=== PATIENT | female | born 1995 ===

== ENCOUNTER 2017-09-10 16:20 | Emergency (ER) | payer OTHER ==
[2017-09-10 16:27] VITALS: BMI 25.2
[2017-09-10 16:33] VITALS: TEMP 99.1; O2SAT 99
[2017-09-10] MEDS ORDERED: Naproxen 550 mg Tab PO STA (16:55)
[2017-09-10] MEDS ORDERED: Naproxen 550 mg Tab PO ONE (17:07)
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
[2017-09-10 17:50] VITALS: BP 106/78; PULSE 72; RESP 20
--- NOTE | 2017-09-10 17:52 | RAD ---
PROCEDURE: Cervical Spine Radiographs. HISTORY: Pain. COMPARISON: None. FINDINGS: BONES: Alignment maintained. No fracture. Dens Intact. DISC SPACES: Normal. SOFT TISSUES: Normal. No prevertebral soft tissue swelling. OTHER FINDINGS: None. IMPRESSION: No evidence of acute displaced fracture or subluxation.
== END 2017-09-10 17:50 | disposition home or self-care (01) ==
LOC: C.ER 16:20
DX: S16.1XXA Strain of muscle, fascia and tendon at neck level, initial encounter (principal); V49.9XXA Car occupant (driver) (passenger) injured in unspecified traffic accident, initial encounter

== ENCOUNTER 2018-10-08 06:07 | Emergency (ER) | payer OTHER, SELFPAY ==
[2018-10-08 06:07] VITALS: BMI 25.2
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
[2018-10-08 10:22] VITALS: BP 125/77; PULSE 93; RESP 17; TEMP 98.2; O2SAT 99
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
== END 2018-10-08 10:21 | disposition home or self-care (01) ==
LOC: C.ER 06:07
DX: S16.1XXA Strain of muscle, fascia and tendon at neck level, initial encounter (principal); S09.90XA Unspecified injury of head, initial encounter; S43.402A Unspecified sprain of left shoulder joint, initial encounter; S40.022A Contusion of left upper arm, initial encounter; V43.52XA Car driver injured in collision with other type car in traffic accident, initial encounter

== ENCOUNTER 2018-10-09 10:46 | Emergency (ER) | payer OTHER | END 2018-10-09 12:35 | disposition home or self-care (01) | LOC: C.ER 10:46 ==

== ENCOUNTER 2018-10-12 10:49 | Emergency (ER) | payer OTHER, SELFPAY ==
[2018-10-12 10:49] VITALS: BMI 25.2
[2018-10-12 10:55] VITALS: TEMP 97.8
[2018-10-12] MEDS ORDERED: Lidocaine 5% Patch TD STA (11:43)
[2018-10-12] MEDS ORDERED: Lidocaine 5% Patch TD ONE (11:55)
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
[2018-10-12 13:58] VITALS: BP 114/68; PULSE 78; RESP 16
[2018-10-12 14:01] VITALS: O2SAT 99
== END 2018-10-12 13:57 | disposition home or self-care (01) ==
LOC: C.ER 10:49
DX: M54.5 Low back pain (principal); M54.6 Pain in thoracic spine; V49.40XD Driver injured in collision with unspecified motor vehicles in traffic accident, subsequent encounter
CPT/HCPCS: 72070; 72100; 81025; 96372; 99283; J1885

== ENCOUNTER 2018-10-14 15:32 | Emergency (ER) | payer OTHER, SELFPAY ==
[2018-10-14 15:32] VITALS: BMI 25.2
[2018-10-14 15:38] VITALS: BP 132/80; PULSE 77; RESP 18; TEMP 97.5; O2SAT 100
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
== END 2018-10-14 16:48 | disposition home or self-care (01) ==
LOC: C.ER 15:32
DX: S16.1XXD Strain of muscle, fascia and tendon at neck level, subsequent encounter (principal); V49.49XD Driver injured in collision with other motor vehicles in traffic accident, subsequent encounter; W22.10XD Striking against or struck by unspecified automobile airbag, subsequent encounter